=== PATIENT | female | born 1970 | race Caucasian/White ===

== ENCOUNTER → 2019-03-29 | Outpatient (CLI) | payer OTHER ==
[2019-03-29 13:12] LABS: Prothrombin Time 10.4 sec (9.0-12.0)
--- NOTE | 2019-03-29 13:59 | US ---
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 [employer], Hep C, no pain EXAM MEASUREMENTS: Liver Length: 14.7 cm Gallbladder Wall: 0.3 cm CBD: 0.4 cm Right Kidney: 9.3 x 4.5 x 4.1 cm Pancreas: Obscured by bowel gas Liver: Slightly heterogenous Gallbladder: wnl Evidence for sonographic Webster's sign: neg CBD: wnl Right Kidney: No hydronephrosis or masses seen Slightly heterogeneous liver without intrahepatic mass or ductal dilatation. No surrounding ascites. IMPRESSION: No suspicious intrahepatic mass or intrahepatic ductal dilatation.
[2019-04-01 09:59] LABS: Hepatits C Virus RNA DETECTED (Not detected); LOG HCV IU/mL 6.34 (<1.08)
== END | disposition home or self-care (01) ==
LOC: RADUSWWP 12:12
PROVIDERS: ATTEND Physician Assistant
DX: B18.2 Chronic viral hepatitis C (principal)
CPT/HCPCS: 36415; 76705; 85610; 87522

== ENCOUNTER → 2019-05-11 | Outpatient (CLI) | payer OTHER ==
[2019-05-11 16:21] LABS: African American GFR (CKD) 77.2 (60.0-200.0); Non-African American GFR(CKD) 66.6 (60.0-200.0)
== END | disposition home or self-care (01) ==
LOC: LABWHC1 10:04
PROVIDERS: ATTEND Physician Assistant
DX: B18.2 Chronic viral hepatitis C (principal)
CPT/HCPCS: 36415; 82565; 84520

== ENCOUNTER → 2019-07-02 | Outpatient (CLI) | payer OTHER ==
[2019-07-02 19:18] LABS: Hepatitis B Surface Antibody Reactive (Non-Reactive); Hepatitis B Surface Antigen Non-Reactive (Non-Reactive)
== END | disposition home or self-care (01) ==
LOC: LABWHC1 10:50
DX: B18.2 Chronic viral hepatitis C (principal)
CPT/HCPCS: 36415; 86704; 86706; 87340

== ENCOUNTER → 2019-08-14 | Outpatient (CLI) | payer OTHER ==
[2019-08-14 16:01] LABS: Basophils # (A) 0.1 k/uL (0-0.2); Basophils % (A) 1 %; Eosinophils # (A) 0.2 k/uL (0-0.7); Eosinophils % (A) 3 %; HCT 39.8 % (34.0-46.0); Lymphocytes # (A) 2.9 k/uL (1.0-4.8); Lymphocytes % (A) 40 %; MCH 28.3 pg (25.0-35.0); MCHC 32.7 g/dL (31.0-37.0); MCV 86.5 fL (80.0-100.0); Mean Platelet Volume 8.7; Monocytes # (A) 0.5 k/uL (0-1.0); Monocytes % (A) 7 %; Neutrophils # (A) 3.2 k/uL (1.3-7.7); Neutrophils % (A) 45 %; Platelet Count 232 k/uL (150-450); WBC 7.2 k/uL (3.8-10.6)
[2019-08-15 01:31] LABS: ALT 12 U/L (8-44); AST 21 U/L (13-35); Alkaline Phosphatase 83 U/L (41-126); Bilirubin, Conjugated <0.20 mg/dL (0.20-0.40); Globulin 2.3 g/dL (1.6-3.3); Total Bilirubin 0.1 mg/dL (0.2-1.2); Total Protein 6.2 g/dL (6.2-8.2)
== END | disposition home or self-care (01) ==
LOC: LABWHC1 15:10
PROVIDERS: ATTEND Physician Assistant
DX: B18.2 Chronic viral hepatitis C (principal)
CPT/HCPCS: 36415; 80076; 85025; 87522

== ENCOUNTER → 2020-04-07 | Outpatient (CLI) | payer OTHER | END | disposition home or self-care (01) | LOC: LABWHC1 11:36 | PROVIDERS: ATTEND Nurse Practitioner Family | DX: Z20.828 Contact with and (suspected) exposure to other viral communicable diseases (principal) | CPT/HCPCS: U0003; C9803 ==

== ENCOUNTER 2020-08-10 09:39 | Emergency (ER) | payer OTHER ==
[2020-08-10 09:45] VITALS: RESP 18; TEMP 98.2
[2020-08-10] MEDS ORDERED: CYCLOBENZAPRINE 10MG STARTER 3 TAB BTL PO STA (10:03)
[2020-08-10] MEDS ORDERED: KETOROLAC 15 MG/ML 1 ML VIAL IM STA (10:03)
--- NOTE | 2020-08-10 10:29 | XR ---
EXAMINATION TYPE: XR ribs RT w pa chest xray DATE OF EXAM: 08/10/2020 COMPARISON: NONE HISTORY: Pain TECHNIQUE: Single view of the chest 4 views of the ribs are submitted. FINDINGS: The lungs are clear. No Evidence for pneumothorax. No evidence for focal contusion. Medi astinal structures are midline. Evaluation of the ribs fails to demonstrate evidence for displaced r ib fracture or secondary sign of rib fracture. IMPRESSION: Negative study
--- NOTE | 2020-08-10 10:52 | ED ---
General Adult HPI - General Chief complaint: Abdominal Pain Stated complaint: IHS-rib pain Time Seen by Provider: 08/10/20 09:53 Source: patient Mode of arrival: ambulatory Limitations: no limitations - History of Present Illness Initial comments: 50yo presenting today for chief complaint of right posterior rib pain. Patient states that she was doing a lot of reaching while cleaning on Tuesday, she states that she came home with rib pain after she states when she twisted she could feel a spasm she states it was in the back/ posterior rib cage> She states she did not fall nor have direct trauma. Patient denies chest pain, dyspnea, leg swelling, hemoptysis, hx of DVT/PE, recentr travel or immobilization. This morning patient bent over to rinse hair in a sink when she swung her head up she felt a terrible spasm in the right back/ribs. She states she can press the area and reproduce the pain. Patient states she could not go to work so she came to the ER. Denies midline tenderness, weakness, sensation deficits. Patient denies additional complaints. UPon arrival patient appears well nontoxic in no acute distress. - Related Data Allergies Allergy/AdvReac Type Severity Reaction Status Date / Time No Known Allergies Allergy Verified 08/10/20 09:44 Review of Systems ROS Statement: Those systems with pertinent positive or pertinent negative responses have been documented in the HPI. ROS Other: All systems not noted in ROS Statement are negative. 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 Eye: Pupils are equal, round and reactive to light, extra-ocular movements are intact. No nystagmus. There is normal conjunctiva bilaterally. No signs of icterus. Ears, nose, mouth and throat: There are moist mucous membranes and no oral lesions. Neck: The neck is supple, there is no tenderness or JVD. Cardiovascular: There is a regular rate and rhythm. No murmur, rub or gallop is appreciated. Respiratory: Lungs are clear to auscultation, respirations are non-labored, breath sounds are equal. No wheezes, stridor, rales, or rhonchi. Gastrointestinal: Soft, non-distended, non-tender abdomen without masses or organomegaly noted. There is no rebound or guarding present. Musculoskeletal: Normal inspection the cervical thoracic and lumbar spine no midline tenderness. Patient has pain to percussion of the posterior, mid ribs. point localized, increases with rotation of torson. Normal ROM, no tenderness of the UE. Strength 5/5 of the UE b/l. Sensation intact of the UE b/l. Radial pulses equal bilaterally 2+. Neurological: A&O x 3. CN II-XII intact grossly, There are no obvious motor or sensory deficits. Coordination appears grossly intact. Speech is normal. Skin: Skin is warm and dry and no rashes or lesions are noted. Psychiatric: Cooperative, appropriate mood & affect, normal judgment. Limitations: no limitations Course Vital Signs 08/10/20 08/10/20 09:41 11:18 Temperature 98.2 F Pulse Rate 74 62 Respiratory 18 18 Rate Blood Pressure 120/71 120/83 O2 Sat by Pulse 99 99 Oximetry Medical Decision Making - Medical Decision Making Ribs pain. Patient was muscle skeletal is very reproducible. Appeared after patient washed hair in a sink., Positional. Imaging negative for fracture or acute abnormality. Patient will be discharged symptomatically treatment and primary care follow-up her temperature discussed patient was discharged appearing well. Dr Agarwal agreeable to this care plan after discussing history and physical exam/imaging. Disposition Clinical Impression: Rib pain on right side Disposition: HOME SELF-CARE Condition: Good Instructions (If sedation given, give patient instructions): Costochondritis (ED) Additional Instructions: Please use medication as discussed. Please follow-up with family doctor in the next 2 days.. Please return to emergency room if the symptoms increase or worsen or for any other concerns. Is patient prescribed a controlled substance at d/c from ED?: No Referrals: Nancy Miller MD [Primary Care Provider] - 1-2 days Time of Disposition: 10:52
[2020-08-10 11:19] VITALS: BP 120/83; PULSE 62
== END 2020-08-10 11:19 | disposition home or self-care (01) ==
LOC: EC 09:39
DX: R07.81 Pleurodynia (principal); F17.200 Nicotine dependence, unspecified, uncomplicated
CPT/HCPCS: 71101; 99284; 96372; J1885

== ENCOUNTER 2023-09-23 12:40 | Day surgery (SDC) | payer BC, OTHER ==
[2023-09-22 08:57] VITALS: BMI 29.2
[2023-09-23] MEDS: LACTATED RINGERS 1,000 ML IV SCH (14:01)
[2023-09-23] MEDS: LIDOCAINE 1% (10MG/ML) FOR IV START INTRADERMA PRN (14:01)
[2023-09-23 14:14] VITALS: TEMP 97.1
[2023-09-23] MEDS ORDERED: PROPOFOL 10 MG/ML 20 ML VIAL IV ONE (14:31)
--- NOTE | 2023-09-23 14:52 | P.PCN ---
Date of Procedure: 09/23/23 Procedure(s) Performed: BRIEF HISTORY: Patient is a 53-year-old pleasant white female scheduled for an elective colonoscopy as a part of screening for colon cancer. PROCEDURE PERFORMED: Colonoscopy. PREOPERATIVE DIAGNOSIS: Screening for colon cancer IV sedation per Anesthesia. PROCEDURE: After informed consent was obtained, the patient, was brought into the endoscopy unit. IV sedation was administered by Anesthesia under continuous monitoring. Digital rectal examination was normal. Initially the Olympus CF-160 flexible video colonoscope was then inserted in the rectum, gradually advanced into the cecum without any difficulty. Careful examination was performed as the scope was gradually being withdrawn. Ileocecal valve and the appendiceal orifice were visualized and appeared normal. Prep was excellent. Mucosa of the cecum, ascending colon, transverse colon, descending colon, sigmoid colon, and rectum appeared normal. Retroflexion was performed in the rectum and no lesions were seen. The patient tolerated the procedure well. IMPRESSION: Normal-appearing colon from rectum to cecum with no evidence of colorectal neoplasia . RECOMMENDATIONS: Findings of this examination were discussed with the patient as well as a family. She was advised to have a repeat screening colonoscopy in 10 years.
[2023-09-23 15:34] VITALS: BP 139/88; PULSE 55; RESP 20
== END 2023-09-23 15:39 | disposition home or self-care (01) ==
LOC: ORWHC2ENDO 12:40
PROVIDERS: ATTEND Internal Medicine Gastroenterology
DX: Z12.11 Encounter for screening for malignant neoplasm of colon (principal); E03.9 Hypothyroidism, unspecified; F32.A Depression, unspecified; F17.290 Nicotine dependence, other tobacco product, uncomplicated; Z79.899 Other long term (current) drug therapy
CPT/HCPCS: 45378; J2704